=== PATIENT | female | born 1950 | race Caucasian/White ===

== ENCOUNTER → 2024-07-03 15:12 | Outpatient (REF) | payer MEDICARE, OTHER, SELFPAY ==
[2024-07-03 15:25] LABS: Hematocrit 31.7 % (37.0-47.0); Hemoglobin 9.9 g/dL (12.0-16.0); Mean Corp Hgb Conc. 31.2 g/dL (33.0-37.0); Mean Corpuscular Volume 89.8 fL (81.0-99.0); Mean Platelet Volume 12.2 fL (7.4-10.4); Platelet Count 51 10^3/uL (130-400); Red Blood Cell Count 3.53 10^6/uL (4.20-5.40); Red Cell Dist. Width 16.2 % (11.5-14.5); White Blood Cell Count 9.1 10^3/uL (4.8-10.8)
[2024-07-03 15:57] LABS: % Basophils 0.1 % (0-2); % Eosinophils 0.3 % (0-6); % Immature Granulocytes 1.2 % (0-0.5); % Lymphocytes 62.6 % (20.5-51.1); % Monocytes 11.6 % (1.7-9.3); % Neutrophils 24.2 % (42.2-75.2); Absolute Immature Granulocytes 0.1 10^3/uL (0-0.05); Absolute Lymphocytes 5.7 10^3/uL (1.2-3.4); Absolute Monocytes 1.1 10^3/uL (0.1-0.6); Absolute Neutrophils 2.2 10^3/uL (1.4-6.5); Nucleated Red Blood Cells % 0 %
== END ==
LOC: OIDL 15:12
PROVIDERS: ATTENDING PHYSICIAN Internal Medicine Hematology & Oncology
DX: C83.80 Other non-follicular lymphoma, unspecified site (principal); D69.6 Thrombocytopenia, unspecified
CPT/HCPCS: 85025

== ENCOUNTER 2024-10-28 21:25 | Observation (INO) | payer MEDICARE, OTHER, SELFPAY ==
[2024-10-28 15:12] VITALS: BP 149/59
--- NOTE | 2024-10-28 16:34 | ED.GENMED ---
History of Present Illness
<Mike Patel DO, Resident - Last Filed: 10/28/24 19:50>
General
Chief Complaint: Back Pain
Source: patient and records
Time Seen by Provider: 10/28/24 16:32
History of Present Illness
History of Present Illness:
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 Follows Dr. Cohn for medical oncology reports she had failed episodes of chemotherapy previously, is now only on 1 oral chemo and
currently getting abdominal radiation treatments. Patient reports she has gotten approximately 5 treatments. Patient reports that she has been been having slight achy back pain 'for a while' but suddenly got more severe yesterday morning when she
woke up. She reports no inciting events, has reported use heating pad and oral Tylenol which did not help. Patient localizes back pain to lower thoracic, upper lumbar, slightly left of midline. Patient reports she has an enlarged spleen. Patient
denies any red flag symptoms, no bowel or bladder incontinence, no perianal anesthesia, no fever.
Past History
<Mike Patel DO, Resident - Last Filed: 10/28/24 19:50>
Past History
ED Past Medical History: Arrthythmia, Cancer, HTN, Seizures and Hypothyroidism
Review of Systems
<Mike Patel DO, Resident - Last Filed: 10/28/24 19:50>
Review of Systems
Constitutional: Reports no symptoms; Denies fever
Respiratory: Reports no symptoms
Cardiac: Reports no symptoms
ABD/GI: Reports no symptoms
: Reports no symptoms
Musculoskeletal: Reports back pain (Back pain, upper thoracic-lower lumbar)
Skin: Reports rash (Malar rash present on face, reports sequelae of chemotherapy)
Neurological: Reports headache
Phy Exam
<Mike Patel DO, Resident - Last Filed: 10/28/24 19:50>
General Physical Exam
General Presentation: well appearing and mild distress
General Skin: warm and dry
General Mental: alert
Cardiovascular Exam
Cardiovascular Exam: regular rate/rhythm, no edema and no murmur
Pulmonary Exam
Pulmonary Exam: lungs clear, no respiratory distress, no crackles and no wheezing
Gastrointestinal Exam
Gastrointestinal Exam: soft, non distended and tender (Abdomen slightly tender to palpation, diffuse. No rebound no guarding on exam)
Musculoskeletal Exam
Musculoskeletal Exam: back pain and back tenderness (Spinal tenderness palpation upper lumbar, lower thoracic-slightly left of midline. No paravertebral tenderness to palpation. No spinal tenderness in cervical or upper thoracic)
Skin Exam
Skin Exam: other (Malar rash present along face-reports sequelae of chemo)
Course
<Mike Patel DO, Resident - Last Filed: 10/28/24 19:50>
Orders/Labs/Results
Orders:
Orders
10/28/24 16:59
CT Abd/pelvis W Iv Cont Urgent
Comment: Spleen size, upper lumbar-lymphoma
Reason For Exam: Enlarged spleen, point tenderness upper lumbar
HYDROmorphone [Dilaudid] 0.25 mg IV NOW STA
10/28/24 17:19
Complete Blood Count/With Diff Urgent
Comprehensive Metabolic Panel Urgent
Manual Differential Urgent
10/28/24 19:13
HYDROmorphone [Dilaudid] 0.25 mg IV NOW STA
10/28/24 19:48
Ondansetron Injectable [Zofran] 4 mg IV NOW STA
Abnormal Lab Results
10/28/24
17:19
WBC 2.5 L 10^3/uL
(4.8-10.8)
Hgb 11.7 L g/dL
(12.0-16.0)
Hct 36.5 L %
(37.0-47.0)
MCHC 32.1 L g/dL
(33.0-37.0)
Plt Count 35 L 10^3/uL
(130-400)
MPV 11.9 H fL
(7.4-10.4)
Abs Neuts (Manual) 1.1 L 10^3/uL
(1.4-6.5)
Monocytes (Manual) 24 H %
(2-9)
BUN 20 H mg/dl
(7-17)
Glucose 214 H mg/dl
(70-99)
Total Protein 6.0 L g/dl
(6.3-8.2)
10/28/24 17:19
10/28/24 17:19
Vital Signs
Initial and Last Documented VS:
Initial Vital Signs
Temp Pulse Resp BP Pulse Ox
97.5 F 78 16 149/59 100
10/28/24 15:12 10/28/24 15:12 10/28/24 15:12 10/28/24 15:12 10/28/24 15:12
Last Documented Vital Signs
Temp Pulse Resp BP Pulse Ox
97.5 F 78 16 149/59 100
10/28/24 15:12 10/28/24 15:12 10/28/24 15:12 10/28/24 15:12 10/28/24 15:12
<Gen Mccormack MD - Last Filed: 10/28/24 17:13>
Orders/Labs/Results
Orders:
Orders
10/28/24 16:59
CT Abd/pelvis W Iv Cont Urgent
Comment: Spleen size, upper lumbar-lymphoma
Reason For Exam: Enlarged spleen, point tenderness upper lumbar
HYDROmorphone [Dilaudid] 0.25 mg IV NOW STA
10/28/24 17:19
Complete Blood Count/With Diff Urgent
Comprehensive Metabolic Panel Urgent
Manual Differential Urgent
10/28/24 19:13
HYDROmorphone [Dilaudid] 0.25 mg IV NOW STA
10/28/24 19:48
Ondansetron Injectable [Zofran] 4 mg IV NOW STA
Abnormal Lab Results
10/28/24
17:19
WBC 2.5 L 10^3/uL
(4.8-10.8)
Hgb 11.7 L g/dL
(12.0-16.0)
Hct 36.5 L %
(37.0-47.0)
MCHC 32.1 L g/dL
(33.0-37.0)
Plt Count 35 L 10^3/uL
(130-400)
MPV 11.9 H fL
(7.4-10.4)
Abs Neuts (Manual) 1.1 L 10^3/uL
(1.4-6.5)
Monocytes (Manual) 24 H %
(2-9)
BUN 20 H mg/dl
(7-17)
Glucose 214 H mg/dl
(70-99)
Total Protein 6.0 L g/dl
(6.3-8.2)
10/28/24 17:19
10/28/24 17:19
Vital Signs
Initial and Last Documented VS:
Initial Vital Signs
Temp Pulse Resp BP Pulse Ox
97.5 F 78 16 149/59 100
10/28/24 15:12 10/28/24 15:12 10/28/24 15:12 10/28/24 15:12 10/28/24 15:12
Last Documented Vital Signs
Temp Pulse Resp BP Pulse Ox
97.5 F 78 16 149/59 100
10/28/24 15:12 10/28/24 15:12 10/28/24 15:12 10/28/24 15:12 10/28/24 15:12
Marylt;Mike Patel DO, Resident - Last Filed: 10/28/24 19:50>
MDM/Problems Addressed
Differential Diagnosis Includes:
Musculoskeletal strain, splenic enlargement, metastatic disease
MDM/Problems Addressed:
74 female past medical history of marginal zone lymphoma, currently getting radiation of the abdomen. Reports for approximately 1 day of severe onset upper lumbar/lower thoracic back pain
Patient reports did not injure it, no inciting events
Patient reports she follows Dr. Cohn for medical oncology, she has trialed chemotherapy for her lymphoma previously but was unable to tolerate it, now only getting 1 oral chemo medication
Has started radiation therapy, has received 5 treatments. Patient is unsure where specifically she is getting radiated but believes it is her abdomen, has tattoos present on abdomen
Patient reports she has a history of enlarged spleen, likely secondary to lymphoma
Patient has tried heating pad and Tylenol for her pain, reports they have not helped much
Patient has no red flag symptoms, no bowel or bladder incontinence, no perianal anesthesia, no fevers
Patient has spinal tenderness on exam to upper lumbar/lower thoracic spine, slightly left of midline. No cervical or thoracic tenderness to palpation, no paravertebral tenderness palpation
Abdomen slightly tender diffusely, no rebound no guarding
Symptoms concerning for musculoskeletal strain or possible metastatic disease to spine
Will order CT abdomen pelvis with IV contrast to evaluate spleen size for potential rupture or any possible metastatic disease to the spine
CT abdomen pelvis demonstrates severe splenomegaly, 18.7 cm in length�which appears similar to PET scan 10/02/2024, mild hepatomegaly, moderate discogenic degenerative disc disease at T11/12
There is no metastatic disease seen on CT, no splenic rupture, no pathologic fractures
Very likely back pain is musculoskeletal in nature
Pain management with IV Dilaudid, patient reports taking blood thinners
CBC with differential, CMP
Hematology demonstrates WBC low 2.5, hemoglobin 11.7, platelets 35, absolute neutrophil 1.1
Cytology discrepancies are very likely secondary to chemotherapy/radiation
Patient complaining of nausea, will prescribe one-time dose IV Zofran
Conversation was had with patient regarding pain management, patient reports that she does not feel comfortable managing this pain at home with oral Vicodin. Patient believes it would be best for her to be admitted and to have pain management while
inpatient rather than attempting to manage outpatient. Reached out to hospitalist who accepted admission
<Mike Patel DO, Resident - Last Filed: 10/28/24 19:50>
*Critical Care Note
Total Time (30-74mins, 75-104mins- exclusive of procedures): Not Applicable
ED Attending Note
<Mike Patel DO, Resident - Last Filed: 10/28/24 19:50>
-
Portions of this chart may have been created with voice recognition software.� Occasional wrong word or��sound alike� substitutions may have occurred due to the inherent limitations of voice recognition software.
<Gen Mccormack MD - Last Filed: 10/28/24 17:13>
ED Attending Note
Patient seen and examined by attending physician: Yes
I performed a history and physical exam of patient and discussed management with resident, I reviewed resident's note and agree with documented findings and plan of care.: Yes
ED Attending Note:
74-year-old female presents with left lower back pain. No trauma. Started 3 to 4 days ago but much worse the last 24 to 48 hours. Somewhat positional. No true abdominal pain no fever no urinary symptoms. No bowel or bladder issues. No
incontinence. Pain is significant however. No response to Tylenol.
History of marginal cell lymphoma. Currently on radiation. Has a very large spleen.
On exam patient is nontoxic but appears mildly uncomfortable. Warm and dry. Perfusing well. Lungs clear and equal. Heart regular rate and rhythm no murmur. Abdomen is soft. Large spleen but no significant tenderness. No rebound or guarding no
mass or hernia. Patient points to the left upper lateral paralumbar area as the location of the pain although no point tenderness. No spinal tenderness. No rash.
Differential would include musculoskeletal pain compression fracture pathologic compression fracture encapsulated splenic rupture. Workup in progress.
Discharge Plan
Departure
Patient Disposition: Admit
Date of Disposition: 10/28/24
Time of Disposition: 19:45
Presentation/result/management discussed w/ accepting MD/DO: Hospitalist
Patient with high blood pressure during this ER visit?: Yes
Condition: Fair
Discharge Problem:
Intractable back pain, Splenomegaly, Marginal zone B-cell lymphoma
Referrals:
Lars Mederos MD [Family Provider] -
Interventions
Interventions:
*Risk Screen - Suicide Last Done: 10/28/24 17:00
*Neglect/Abuse Screening Last Done: 10/28/24 17:00
ED- Fall Risk Assessment Last Done: 10/28/24 17:00
*ED COVID-19 Vaccine History Last Done: 10/28/24 17:00
ED-Musculoskeletal Assessment Last Done: 10/28/24 17:00
Discharge Date and Time
Print Language: KITTITIAN
[2024-10-28] MEDS: DILAUDID 0.25 MG IV ×2 (17:14→19:43)
[2024-10-28 17:37] LABS: Hematocrit 36.5 % (37.0-47.0); Hemoglobin 11.7 g/dL (12.0-16.0); Mean Corp Hgb Conc. 32.1 g/dL (33.0-37.0); Mean Corpuscular Hgb 27.2 pg (27.0-31.0); Mean Corpuscular Volume 84.9 fL (81.0-99.0); White Blood Cell Count 2.5 10^3/uL (4.8-10.8)
[2024-10-28 17:57] LABS: ALT (SGPT) 18 U/L (0-35); AST (SGOT) 16 U/L (14-36); Albumin 4.3 g/dl (3.5-5.0); Alkaline Phosphatase 64 U/L (38-126); Blood Urea Nitrogen 20 mg/dl (7-17); Calcium 9.2 mg/dl (8.4-10.2); Carbon Dioxide 26 mmol/L (22-30); Chloride 103 mmol/L (98-107); Glucose 214 mg/dl (70-99); Potassium 4.4 mmol/L (3.5-5.1); Sodium 139 mmol/L (135-145); eGFR 58.39
[2024-10-28 18:15] LABS: Mean Platelet Volume 11.9 fL (7.4-10.4); Platelet Count 35 10^3/uL (130-400)
[2024-10-28 18:21] VITALS: BMI 27.1
[2024-10-28 18:27] LABS: Absolute Neutrophils -Man Diff 1.1 10^3/uL (1.4-6.5); Band Neutrophils 0 % (0-3); Lymphocytes 30 % (20-51); Metamyelocytes 1 % (-); Monocytes 24 % (2-9); Platelets Checked Yes; Segmented Neutrophils 45 % (42-75)
[2024-10-28 18:28] LABS: Normal RBC Morphology Yes; Total Cells Counted 100
--- NOTE | 2024-10-28 20:16 | HPS.HSE ---
Family Physician
-
Family Physician: Lars Mederos
Chief Complaint
-
Thoracic paraspinal pain
History of Present Illness
74-year-old female complaining of intractable back pain for the past 3 days. She has tried heating pad, Tylenol. She reports pain is in the lower thoracic paraspinal area. She denies any weakness in arms or legs or trunk. She denies fever,
chills, chest pain, palpitations, shortness breath, cough, abdominal pain, nausea, vomiting, diarrhea, urinary symptoms, rash. She has point tenderness along the lower thoracic paraspinal muscle that does not radiate. She does state after
radiation on , September 25 she started doing more activities at home cleaning up multiple things lifting and sorting light things. She reports the pain as sharp but also spasm-like. She has history of marginal zone lymphoma currently
getting abdominal radiation to her spleen twice a week treatments at [facility] she is currently on 1 oral growth inhibitor (Calquence). She reports she has tried different types of oral chemotherapy that have not worked in the past. I
informed the patient her current platelet level is 35 with her prior range being 50-65. She is due on Wednesday for routine lab work before her radiation treatment. She also reports history of splenomegaly, HTN, seizures x 10 years last one 1.5 years
ago, hypothyroidism, GERD, hypothyroidism, HLD, DM2, CVA x 2,? A-fib was on Xarelto until 1 year ago then stopped due to thrombocytopenia
Medical History
Past Medical History
Past Medical History: Reports Other
Additional Past Medical History:
splenomegaly-currently getting radiation 2 times a week
Marginal zone lymphoma
HTN
CVA x 2
seizures x 10 years
hypothyroidism
GERD
hypothyroidism
HLD
DM2
? A-fib
Past Surgical History: Reports Other
Additional Past Surgical History:
Partial thyroidectomy
section x 2
Cataract extraction
Eyelid ptosis repair
Cholecystectomy
Mohs procedure
Cyst removal from breast
Social History
Tobacco: Non-smoker
Alcohol: None
Drug: None
Personal: Single
Living: Alone
Employment: Retired (Teacher)
Family History
Family History: Other (Daughter history Lupus)
Allergies / Home Medications
Allergies reflects when Allergies were last updated in [facility].
Home Medications with original date entered in [facility]
Allergy/Medication List:
Allergies
Allergy/AdvReac Type Severity Reaction Status Date / Time
clindamycin Allergy Unknown Verified 10/28/24 15:20
doxycycline Allergy Unknown Verified 10/28/24 15:20
Penicillins Allergy Unknown Verified 10/28/24 15:20
Sulfa (Sulfonamide Allergy Unknown Verified 10/28/24 15:20
Antibiotics)
tacrolimus Allergy Unknown Verified 10/28/24 15:20
Home Medications
Glucophage XR 500 mg PO DAILY@17 10/28/24
Lamictal 100 mg PO DAILY 10/28/24
Lipitor 80 mg PO HS 10/28/24
M.V.I. Adult 1 tab PO DAILY 10/28/24
Pepcid 20 mg PO HS 10/28/24
Synthroid 137 mcg PO DIRECTED 10/28/24
ezetimibe 10 mg tablet (Zetia) 10 mg PO DAILY 10/28/24
gabapentin 300 mg PO HS 10/28/24
gabapentin 300 mg PO TID 10/28/24
melatonin 10 mg PO HS 10/28/24
omeprazole 40 mg PO DAILY 10/28/24
oxybutynin chloride 10 mg PO HS 10/28/24
trazodone 50 mg PO HS 10/28/24
Review of Systems
-
History Source: Patient and Family (Patient's brother at bedside)
A 12 point ROS was completed and negative except as noted: Yes
Constitutional: Denies Fever, Fatigue or Chills
EENT: Denies Sore Throat or Runny Nose
Respiratory: Denies Cough or Trouble Breathing
Cardiac: Denies Chest Pain, Diaphoresis, Palpitations or Syncope
Abdomen/GI: Denies Abdominal Pain, Nausea, Vomiting, Diarrhea, Constipated, Bloody Stools or Black Stools
: Denies Dysuria, Frequency, Flank Pain, Incontinence or Urgency
Musculoskeletal: Reports Other (Left lower thoracic paraspinal tenderness); Denies Joint Pain, Joint Swelling or Edema
Skin: Denies Itching or Rash
Neurological: Denies Dizzy, Headache, Weakness or Numbness
Endocrine: Reports No Symptoms
Hematologic/Lymphatic: Reports No Symptoms
Psych: Reports Calm
Physical Exam
Vital Signs
Vital Signs
Temp Pulse Resp BP Pulse Ox
97.5 F 78 16 149/59 100
10/28/24 15:12 10/28/24 15:12 10/28/24 15:12 10/28/24 15:12 10/28/24 15:12
Physical Exam
General: Conversant and Pain; No Fever or Chills
HEENT: NormoCephalic, Anicteric, Moist mucous membranes, PERRLA, [place] Conjunctivae, No Ptosis, Neck Nontender and Other (Butterfly appearance rash to face patient states this is known and ongoing)
Respiratory: Clear; No Wheezes, Rales or Rhonchi
Cardiac: S1/S2 and Regular Rhythm; No Murmur, Rub, Gallop or Peripheral Edema
GI: Soft, Non Tender, Non Distended, Normal Bowel Sounds and Other (Multiple radiation tattoo stickers across left side abdomen)
Rectal: Deferred by Provider
Genito-urinary: Deferred by me
Musculoskeletal: No Clubbing, No Cyanosis, No Edema and Other (Left lower thoracic paraspinal tenderness)
Skin: Warm and Dry; No Rash or Jaundice
Neuro: AO x 3, No Motor Deficits and No Sensory Deficits; No Slurred Speech, Facial Droop, Tremors or Sedated
Psych: Calm
Laboratory Results
-
10/28/24 17:19
10/28/24 17:19
Laboratory Results
Total Bilirubin 1.0 mg/dl (0.2-1.3) 10/28/24 17:19
AST 16 U/L (14-36) 10/28/24 17:19
ALT 18 U/L (0-35) 10/28/24 17:19
Alkaline Phosphatase 64 U/L (38-126) 10/28/24 17:19
Impression/Plan
-
Impression/plan:
Observation MedSurg
#Intractable thoracic back pain paraspinal strain
Moderate DDD T11-T12
-Lidoderm patch to left lower thoracic spine
-Flexeril now and 3 times daily as needed spasm
-Percocet 5/325 as needed moderate�severe pain
CT abdomen/pelvis with IV contrast:
1. SEVERE SPLENOMEGALY (18.7 cm in length) which appears similar to 10/02/2024.
2. Mild hepatomegaly.
3. Severe calcific atherosclerotic plaque in the abdominal aorta.
4. Mild circumferential wall thickening throughout the colon suggesting a mild colitis.
5. Moderate discogenic degenerative disease at T11/T12.
#Marginal B-cell lymphoma
On current oral growth inhibitor (Calquence) and abdominal radiation twice a week for the past 3 weeks
#Neutropenia
Absolute neutrophil 1.1
-Follow CBC
#Thrombocytopenia
#Hx splenomegaly
PLT 35 -was 50-65 July 17�June 2024
-Patient due for CBC 10/30/2024
#DM 2
Accu-Cheks with SSI, check HgbA1c
BS 214
-Continue metformin 500 mg at 1700
Hx seizures x 10 years
Last one 1.5 years ago
-Continue Lamictal 100 mg daily, gabapentin 300 mg 3 times daily, 300 mg at bedtime
CVA x 2,? A-fib was on Xarelto until 1 year ago then stopped due to thrombocytopenia
-Continue Zetia 10 mg daily, Lipitor 80 mg at bedtime
#History questionable A-fib
-Is no longer on Xarelto due to thrombocytopenia
#Hypothyroidism
Partial thyroidectomy
-Continue levothyroxine 137 mcg
#HLD
Continue Zetia 10 mg daily, Lipitor 80 mg at bedtime
#GERD
-Continue Pepcid and omeprazole daily
# Overactive bladder
Continue oxybutynin
#Insomnia
Continue melatonin, trazodone
DVT prophylaxis
SCDs given plt 35
Full code
--- NOTE | 2024-10-28 20:26 | W.PN.UPDATE ---
Update Note
Progress Note Update
Patient seen in conjunction with [facility]. I agree with the findings on history and physical. I concur with the assessment and plan as stated unless otherwise stated.
This is a 74-year-old was a past medical history notable for type 2 diabetes, hypertension, hypothyroid and marginal cell lymphoma on current radiation treatment complicated by splenomegaly who presents to the emergency department with acute episode
of left-sided back pain. Patient reports awakening with severe left-sided back pain today. She reports that sharp pain that is mostly paraspinal on the left side and does not radiate to the left flank. It does not radiate down the legs. She
denies any numbness or tingling in her legs. Patient denies any rash. She denies any fevers or chills. She has no urinary symptoms. She has no history of kidney stones. She taking Tylenol and heat compresses at home without much benefit.
On my exam the patient has tenderness on the left paraspinal lumbar area. There was no swelling. There was no rash. There was no flank pain or subcostal pain with palpation. Negative straight leg raise.
She was afebrile, blood pressure was 150/60 with a pulse of 78 satting 100% on room air. CBC remarkable for thrombocytopenia to 35. This is unchanged from prior. Electrolytes BUN/creatinine and LFTs were within the normal range.
CT of the abdomen pelvis shows severe splenomegaly which is unchanged from prior. She has incidental atherosclerotic disease of the aorta as well as a mild colitis.
She appears to have had some relief with IV hydromorphone in the ED. However patient is concerned that the pain will recur and she will not be able to manage at home.
Assessment and plan
Overall picture is consistent with a musculoskeletal back pain without alarm findings. No fractures, dislocation. No bleeding. No urinary symptoms. No stones on exam. The spleen is enlarged but no bleeding or infarct.
- admit to med/surg
- check u/a
- pain control with topical lidocaine, muscle relaxant and tylenol/oxycodone and prn dilaudid
- palliative consult if still uncontrolled in am
- will avoid nsaids.
- DVT PPX with SCDs given profound thrombocytopenia
thrombocytopenia - chronic with recent further decline on XRT. No spontanous mucusal bleed.
- f/u with outpatient onc.
Management of DM II, hypothyroid and BP per [facility] note
Code status - full code
[2024-10-28] MEDS: PERCOCET 5/325 1 TABLET PO (21:13)
[2024-10-28] MEDS: FLEXERIL 5 MG PO (21:14)
[2024-10-28 21:17] VITALS: BP 143/62
[2024-10-28] MEDS: PEPCID 20 MG PO (23:25)
[2024-10-28] MEDS: DITROPAN 10 MG PO (23:25)
[2024-10-28] MEDS: LIPITOR 80 MG PO (23:25)
[2024-10-28] MEDS: MELATONIN 10 MG PO (23:26)
[2024-10-28] MEDS: DESYREL 50 MG PO (23:26)
[2024-10-28] MEDS: LIDOCAINE 4% PATCH 1 PATCH TOPICAL (23:27)
[2024-10-28] MEDS: NEURONTIN 300 MG PO (23:27)
[2024-10-29] VITALS: BP 132/58
[2024-10-29] MEDS: PERCOCET 5/325 1 TABLET PO ×3 (03:44→13:08)
[2024-10-29] MEDS: TYLENOL 650 MG PO ×2 (04:12→08:24)
[2024-10-29] MEDS: FLEXERIL 5 MG PO (04:12)
[2024-10-29 06:10] LABS: Hematocrit 32.4 % (37.0-47.0); Hemoglobin 10.4 g/dL (12.0-16.0); Mean Corp Hgb Conc. 32.1 g/dL (33.0-37.0); Mean Corpuscular Hgb 27.4 pg (27.0-31.0); Mean Corpuscular Volume 85.3 fL (81.0-99.0); Platelet Count 34 10^3/uL (130-400); Red Cell Dist. Width 13.9 % (11.5-14.5); White Blood Cell Count 2.1 10^3/uL (4.8-10.8)
[2024-10-29 06:13] LABS: Blood Urea Nitrogen 19 mg/dl (7-17); Calcium 8.7 mg/dl (8.4-10.2); Carbon Dioxide 28 mmol/L (22-30); Chloride 103 mmol/L (98-107); Estimated Creatinine Clearance 56 ml/min; Glucose 172 mg/dl (70-99); Potassium 4.2 mmol/L (3.5-5.1); Sodium 138 mmol/L (135-145); eGFR > 60.00
[2024-10-29] MEDS: NEURONTIN 300 MG PO (08:24)
[2024-10-29] MEDS: PROTONIX 40 MG PO (08:24)
[2024-10-29] MEDS: ZETIA 10 MG PO (08:25)
[2024-10-29] MEDS: THERAGRAN 1 TABLET PO (08:25)
[2024-10-29] MEDS: LAMICTAL 100 MG PO (08:25)
[2024-10-29 08:45] LABS: Segmented Neutrophils 45 % (42-75)
[2024-10-29 08:46] LABS: Band Neutrophils 1 % (0-3); Lymphocytes 29 % (20-51); Metamyelocytes 1 % (-); Monocytes 24 % (2-9)
[2024-10-29 08:47] LABS: Normal RBC Morphology Yes; Platelets Checked Yes
[2024-10-29 08:48] LABS: Absolute Neutrophils -Man Diff 0.9 10^3/uL (1.4-6.5); Total Cells Counted 100
[2024-10-29 08:54] VITALS: BP 141/61
--- NOTE | 2024-10-29 12:55 | W.PN.HOSP.TC ---
Addendum entered and electronically signed by Hussein Jacobo MD 10/29/24 16:32:
[id number]
Original Note:
Today's Communication/Plan
-
pain control with lidocaine patch, Tylenol, oxy
Assessment / Plan
Assessment / Plan
Physical Exam
General: Conversant and Pain; No Fever or Chills
HEENT: NormoCephalic, Anicteric, Moist mucous membranes, PERRLA, [place] Conjunctivae, No Ptosis, Neck Nontender and Other (Butterfly appearance rash to face patient states this is known and ongoing)
Respiratory: Clear; No Wheezes, Rales or Rhonchi
Cardiac: S1/S2 and Regular Rhythm; No Murmur, Rub, Gallop or Peripheral Edema
GI: Soft, Non Tender, Non Distended, Normal Bowel Sounds and Other (Multiple radiation tattoo stickers across left side abdomen)
Rectal: Deferred by Provider
Genito-urinary: Deferred by me
Musculoskeletal: No Clubbing, No Cyanosis, No Edema and Other (Left lower thoracic paraspinal tenderness - mild tenderness)
Skin: Warm and Dry; No Rash or Jaundice
Neuro: AO x 3, No Motor Deficits and No Sensory Deficits; No Slurred Speech, Facial Droop, Tremors or Sedated
Psych: Calm
#Intractable thoracic back pain paraspinal strain
Moderate DDD T11-T12
-possibly related to splenomegaly v malignant related
-Lidoderm patch to left lower thoracic spine
-Percocet 5/325 as needed moderate�severe pain
-tylenolol
#Evidence of mild colitis on ct
-no diarrhea or abd pain
-more than likely related to radiation
-ctm outpt
-supportive care
CT abdomen/pelvis with IV contrast:
1. SEVERE SPLENOMEGALY (18.7 cm in length) which appears similar to 10/02/2024.
2. Mild hepatomegaly.
3. Severe calcific atherosclerotic plaque in the abdominal aorta.
4. Mild circumferential wall thickening throughout the colon suggesting a mild colitis.
5. Moderate discogenic degenerative disease at T11/T12.
#Marginal B-cell lymphoma
On current oral growth inhibitor (Calquence) and abdominal radiation twice a week for the past 3 weeks
EVERE SPLENOMEGALY (18.7 cm in length) which appears similar to 10/02/2024.
-f/u outpt
#Neutropenia
Absolute neutrophil 1.1
-Follow CBC outpt
#Thrombocytopenia
#Hx splenomegaly
PLT 35 -was 50-65 July 17June 2024
-Patient due for CBC 10/30/2024
-f/u outpt
#DM 2
Accu-Cheks with SSI, check HgbA1c
BS 214
-Continue metformin 500 mg at 1700
Hx seizures x 10 years
Last one 1.5 years ago
-Continue Lamictal 100 mg daily, gabapentin 300 mg 3 times daily, 300 mg at bedtime
CVA x 2,? A-fib was on Xarelto until 1 year ago then stopped due to thrombocytopenia
-Continue Zetia 10 mg daily, Lipitor 80 mg at bedtime
#History questionable A-fib
-Is no longer on Xarelto due to thrombocytopenia
#Hypothyroidism
Partial thyroidectomy
-Continue levothyroxine 137 mcg
#HLD
Continue Zetia 10 mg daily, Lipitor 80 mg at bedtime
#GERD
-Continue Pepcid and omeprazole daily
# Overactive bladder
Continue oxybutynin
#Insomnia
Continue melatonin, trazodone
DVT prophylaxis
SCDs given plt 35
Full code
More than 30 minutes spent in discharge including
Final examination of the patient
Summarizing hospital stay
Instructions for continuing care to all relevant caregivers
Preparation of discharge records, prescriptions, and referral forms
Total time spent (36 in minutes):
Anticipated Discharge: Today
Subjective/Interval History
-
Date of Service: October 29, 2024
Pain improved
Objective Data
-
Labs:
Laboratory Results
10/29/24
05:40
WBC 2.1 L*
Hgb 10.4 L
Hct 32.4 L
Plt Count 34 L
Sodium 138
Potassium 4.2
Chloride 103
Carbon Dioxide 28
BUN 19 H
Creatinine 0.8
Glucose 172 H
Calcium 8.7
Vital Signs:
Vital Signs
Temp Pulse Resp BP Pulse Ox
97.9 F 71 16 141/61 98
10/29/24 08:30 10/29/24 08:30 10/29/24 08:30 10/29/24 08:54 10/29/24 08:55
I&O
10/28/24 10/29/24 10/30/24
06:59 06:59 06:59
Intake Total 240 / 240
Balance 240 / 240
Review of Systems
-
History Source: Patient
All other systems: Not reviewed unless documented
Data Reviewed
-
CT Scan: Report Reviewed by me
Labs: Labs Reviewed by me
--- NOTE | 2024-10-29 13:00 | W.DS.TRANS ---
DC Summary - Food And Beverage Lead
-
Discharge Instructions:
Discharge Diagnosis/Procedures Paraspinal back pain, muscle skeletal pain
Diet Low Cholesterol,Low Fat
Activity As tolerated
Blood Work cbc and bmp in 3-5 days with pcp/hematology
Others Tests imaging as per oncology
Instructions:
Stand-Alone Forms:
Changes to Home Medications: Yes
Discharge Medications:
DC Medications w/original date entered in [facility]
ezetimibe 10 mg tablet (Zetia) 10 mg PO DAILY High Cholesterol 10/28/24
acetaminophen 325 mg tablet (Tylenol) 650 mg (2 x 325 mg) PO Q6H PRN mild pain #90 tabs 10/29/24
atorvastatin 80 mg tablet 80 mg PO HS High Cholesterol 10/29/24
famotidine 20 mg tablet 20 mg PO HS Gastrointestinal Issue 10/29/24
gabapentin 300 mg capsule 300 mg PO DAILY neuropathic pain 10/29/24
gabapentin 300 mg capsule 300 mg PO TID neuropathic pain 10/29/24
lamotrigine 100 mg tablet 100 mg PO DAILY Seizures 10/29/24
levothyroxine 137 mcg tablet 137 mcg PO DAILY Thyroid 10/29/24
lidocaine 4 % topical patch 1 patch topical DAILY@1999 #60 ea 10/29/24
melatonin 10 mg tablet 10 mg PO HS Sleep 10/29/24
metformin 500 mg tablet,extended release 24 hr 500 mg PO DAILY@1700 Diabetes 10/29/24
multivitamin 1 tab PO DAILY Supplement 10/29/24
omeprazole 40 mg capsule,delayed release 40 mg PO DAILY Gastrointestinal Issue 10/29/24
oxybutynin chloride 10 mg tablet,extended release 24 hr 10 mg PO HS Urinary Issue 10/29/24
oxycodone-acetaminophen 5 mg-325 mg tablet 1 tab PO Q4HPRN PRN mod back pain #18 tabs 10/29/24
trazodone 50 mg tablet 50 mg PO HS Sleep 10/29/24
Home Medication Changes
oxycodone-acetaminophen 5 mg-325 mg tablet 1 tab PO Q4HPRN PRN mod back pain #18 tabs 10/29/24
acetaminophen 325 mg tablet (Tylenol) 650 mg (2 x 325 mg) PO Q6H PRN mild pain #90 tabs 10/29/24
lidocaine 4 % topical patch 1 patch topical DAILY@1999 #60 ea 10/29/24
Pending Results: No
[2024-10-29 13:33] VITALS: BP 129/68
== END 2024-10-29 14:02 | disposition home or self-care (01) ==
LOC: ED 21:25
PROVIDERS: Clinical Nurse Specialist Family Health; ADMITTING PHYSICIAN Internal Medicine; ATTENDING PHYSICIAN Internal Medicine; EMERGENCY PHYSICIAN Emergency Medicine; FAMILY PHYSICIAN Family Medicine
DX: M79.18 Myalgia, other site (principal); M51.34 Other intervertebral disc degeneration, thoracic region; C83.00 Small cell B-cell lymphoma, unspecified site; I10 Essential (primary) hypertension; E03.9 Hypothyroidism, unspecified; R16.2 Hepatomegaly with splenomegaly, not elsewhere classified; K52.9 Noninfective gastroenteritis and colitis, unspecified; R11.0 Nausea; M54.50 Low back pain, unspecified; K21.9 Gastro-esophageal reflux disease without esophagitis; E78.5 Hyperlipidemia, unspecified; E11.9 Type 2 diabetes mellitus without complications; D70.9 Neutropenia, unspecified; N32.81 Overactive bladder; G47.00 Insomnia, unspecified; I70.0 Atherosclerosis of aorta; I48.91 Unspecified atrial fibrillation; D69.6 Thrombocytopenia, unspecified; Z90.49 Acquired absence of other specified parts of digestive tract; Z88.1 Allergy status to other antibiotic agents; Z88.0 Allergy status to penicillin; Z88.2 Allergy status to sulfonamides; Z88.8 Allergy status to other drugs, medicaments and biological substances; Z92.3 Personal history of irradiation; Z92.21 Personal history of antineoplastic chemotherapy; Z86.73 Personal history of transient ischemic attack (TIA), and cerebral infarction without residual deficits; Z79.84 Long term (current) use of oral hypoglycemic drugs; Z79.890 Hormone replacement therapy
CPT/HCPCS: 74177; 80048; 80053; 85025; 96374; 96375; 96376; 99284; G0378; Q9967